=== PATIENT | male | born 1990 | race Caucasian/White ===

== ENCOUNTER 2023-12-26 15:30 | Day surgery (SDC) | payer BC ==
[2023-12-26] MEDS ORDERED: LIDOCAINE HCL 1% AMPUL 5 ML IJ ONE (15:31)
[2023-12-26] MEDS ORDERED: Decadron 4 MG INJ IV ONE (15:31)
[2023-12-26] MEDS ORDERED: Sodium Chloride 0.9(Preservative Free) 10 ML IJ ONE (15:31)
--- NOTE | 2023-12-26 18:59 | XRAY ---
Indication: Cervical JOVANNI. Intraoperative fluoroscopy provided for 36 seconds. 3 digital spot image submitted for interpretation demonstrates posterior needle tip projecting posterior to cervical thoracic junction. Small amount of contrast injected for needle tip placement. Correlate with intraoperative findings/report.
--- NOTE | 2023-12-27 08:52 | XRAY ---
36 seconds of fluoroscopy was used in surgery for a cervical JOVANNI.
== END 2023-12-26 18:35 | disposition home or self-care (01) ==
LOC: SDC-PAIN 15:30
PROVIDERS: ATTEND Psychiatry & Neurology Pain Medicine
DX: M54.12 Radiculopathy, cervical region (principal)
CPT/HCPCS: 62321; 72040; 77003; J1100; Q9966